=== PATIENT | male | born 1980 | race Caucasian/White ===

== ENCOUNTER 2023-08-19 14:43 | Outpatient (RCR) | payer OTHER, SELFPAY | END 2023-12-20 09:33 | disposition home or self-care (01) | LOC: HO.WCC 14:43 | PROVIDERS: PCP Internal Medicine; Visit Provider Surgery | DX: Z09 Encounter for follow-up examination after completed treatment for conditions other than malignant neoplasm (principal); E10.9 Type 1 diabetes mellitus without complications; F84.0 Autistic disorder; Z86.718 Personal history of other venous thrombosis and embolism; Z86.31 Personal history of diabetic foot ulcer | CPT/HCPCS: 11042; 99212 ==

== ENCOUNTER 2024-01-09 08:31 | Inpatient (IN) | payer OTHER, SELFPAY ==
[2024-01-09 08:39] VITALS: BP 199/102; PULSE 99; RESP 20; TEMP 37.1; O2SAT 99; BMI 35.5
--- NOTE | 2024-01-09 09:21 | ECG_ITS ---
Test Reason : HYPERTENSIVE Blood Pressure : / mmHG Vent. Rate : 091 BPM Atrial Rate : 091 BPM P-R Int : 188 ms QRS Dur : 090 ms QT Int : 352 ms P-R-T Axes : 059 -11 016 degrees QTc Int : 432 ms Normal sinus rhythm Minimal voltage criteria for LVH, may be normal variant ( R in aVL ) Cannot rule out Anterior infarct , age undetermined Abnormal ECG No previous ECGs available Referred By: Safia Paul Electronically Signed By:JOCELYNN FREED
--- NOTE | 2024-01-09 09:22 | ED.PSYCH ---
HPI - Psych General Chief Complaint: Psychiatric Symptoms Stated Complaint: SI w/ plan Time Seen by Provider: 01/09/24 09:14 Source: patient Mode of arrival: ambulatory Limitations: no limitations History of Present Illness ED Provider: CASI HUTCHINSON PA-C HPI Narrative: 43 year old male pmhx significant for T2DM on Metformin presents to the ED today on hi own accord for suicidal ideation. Patient reports feeling down/ depressed x1.5 weeks. Reports feeling suicidal with plan to shoot himself with a gun. He does not have access to any fire arms at home. He has not attempted suicide in the past. He informed [facility] shelter case manager of these recent thoughts and was driven to the ED for further evaluation. Denies HI. Denies etoh consumption. Denies illicit substance use. Denies AH/VH/TH. Unknown psych history. Denies any physical complaints at present. Denies fever, chills, headache, dizziness, chest pain, sob, palpitations. Related Data Allergies Allergy/AdvReac Type Severity Reaction Status Date / Time No Known Allergies Allergy Verified 01/09/24 08:44 Review of Systems Review of Systems: Constitutional: No fever, chills, fatigue, night sweats, weight changes ENT/Mouth: No ear pain, hearing loss, nasal congestion, sinus pain, rhinorrhea, sore throat Eyes: No eye pain, swelling, redness, vision changes, discharge Cardio: No chest pain, palpitations, MAK, orthopnea, peripheral edema Pulm: No SOB, cough, sputum, wheezing, dyspnea, hemoptysis GI: No nausea, vomiting, hematemesis, abdominal pain, diarrhea, constipation, hematochezia, melena : No irregular bleeding, dysuria, frequency, urgency, hesitancy, hematuria, flank pain, urinary flow changes, urinary incontinence or retention MSK: No back pain, neck pain, joint pain, myalgias Skin: No lesions, rashes Neuro: No weakness, numbness, paresthesias, LOC, dizziness, headache Psych: No anxiety/panic, depression, SI/HI, AH/VH All other systems reviewed and are negative. [facility] Past Medical History Attestation statement: The following information was validated with the patient. Source: old records reviewed and nursing notes reviewed Social History Social History Smoked in Last 30 Days: No Advance Directives: No Advance Directives Information Provided: Yes Do you have a plan to hurt others: No Plan Physical Exam Vital Signs: Vital Signs: Last Vital Signs Temp 97.4 F 01/09/24 14:13 Pulse 94 01/09/24 14:13 Resp 14 01/09/24 14:13 BP 177/99 H 01/09/24 14:13 Pulse Ox 98 01/09/24 14:13 O2 Del Method Room Air 01/09/24 14:13 BMI result Body Mass Index 35.5 Patient hypertensive, vitals otherwise WNL General: Well appearing, in no acute distress. Skin: Warm, dry, intact. No rashes or lesions. Head: Normocephalic, atraumatic. EENT: Hearing is intact b/l. Conjunctiva clear. Sclera is anicteric. PERRLA. EOM intact. Moist mucous membranes.? Neck: Supple without LAD. FROM. Trachea midline.? Cardiac: Chest wall symmetric. RRR. No MRG. No JVD. Lungs: Normal respiratory effort without accessory muscle use. CTA bilaterally. No rales, rhonchi, or wheezes.? Abdomen: Soft, non-tender, non-distended. No rebound tenderness or guarding. Positive BS x4. Back: No midline spinous or paraspinal tenderness. No step off deformity. Ext: Upper and lower extremities atraumatic, without tenderness, deformity, swelling or erythema. Full ROM throughout. Pulses 2+ equal and bilateral. Neuro: AOx3. Normal speech. CN 2-12 grossly intact. Strength 5/5 intact throughout. Sensation intact to light touch. NV intact distally. Ambulating with steady gait. Psych: Responds appropriately to questions. Course Course Course Narrative: 1127 -- CBC without leukocytosis. No left shift. Normocytic anemia. No priors to compare to. H&H above transfusion threshold. Chemistry without acute electrolyte abnormality requiring intervention. Urine positive for infection > patient denies any urinary symptoms however given positive nitrites with 4+ urine bacteria, will treat for UTI. Patient agreeable with this. Ceftin ordered. Urine tox negative. Ethanol undetectable. > patient medically cleared at this time > patient placed in phys obs pending care team consultation and disposition. 1315 -- Discussed case with Mariely from care team. Patient is a bed search for inpatient psych treatment with reassessment in the morning. Physician observation continued pending placement. Medications Administered Generic Name Dose Route Start Last Admin Trade Name Alq PRN Reason Stop Dose Admin Cefuroxime Axetil 500 mg 01/09/24 11:00 01/09/24 12:51 Cefuroxime Axetil 500 Mg Tablet PO 500 mg BID GUILLERMO Administration Medical Decision Making Medical Decision Making [facility] Narrative: 43 year old male pmhx significant for T2DM on Metformin presents to the ED today on hi own accord for suicidal ideation. Patient hypertensive, vitals otherwise WNL. He is nontoxic appearing in no acute distress. A&O x3. Speaking in full complete sentences. Answering questions appropriately. Exam is nonfocal. RRR. Lungs CTA bilaterally. Skin w/d/i. Differential diagnosis includes anemia, electrolyte abnormality, urinary tract infection, depression, suicidal ideation, polysubstance use, ETOH consumption Plan for basic labs, UA, urine drug screen, EKG, re-evaluation and medical clearance for care team consultation Differential Diagnosis Differential Diagnoses: The differential diagnosis associated with the presentation includes as above. Admission/Observation Not indicated. Lab Data [facility] Lab Attestation statement: I reviewed the patient's lab results. as above. 01/09/24 10:09 01/09/24 10:09 Labs: Lab Results 01/09/24 Range/Units 10:09 WBC 5.7 (4.8-10.8) X10*3/uL RBC 4.32 L (4.60-5.80) X10*6/uL Hgb 12.6 L (14.0-18.0) g/dl Hct 35.6 L (42.0-52.0) % MCV 82.4 (80.0-98.0) fL MCH 29.2 (27.0-33.0) pg MCHC 35.4 (31.0-36.0) g/dl RDW 13.6 (11.0-16.0) % Plt Count 134 L (160-400) X10*3/uL MPV 10.2 (9.4-12.4) fL Immature Gran % (Auto) 0.7 H (0.0-0.4) % Neut % (Auto) 70.9 (45-73) % Lymph % (Auto) 15.0 L (20-40) % [place] % (Auto) 9.4 (2-11) % Eos % (Auto) 3.5 (0-4) % Baso % (Auto) 0.5 (0-2) % Lymph # (Auto) 0.9 L (1.2-4.9) X10*3/uL [place] # (Auto) 0.5 (0.1-1.2) X10*3/uL Eos # (Auto) 0.2 (0.0-0.4) X10*3/uL Baso # (Auto) 0.0 (0.0-0.2) X10*3/uL Abs Immat Gran (auto) 0.04 H (0.00-0.03) X10*3/uL Absolute Neuts (auto) 4.1 (2.0-8.3) x10*3/uL Absolute Nucleated RBC 0.000 (0.0-0.012) X10*3/uL Nucleated RBC % (auto) 0.0 (0.0-0.2) /100WBC Sodium 138 (135-145) mmol/L Potassium 4.7 (3.3-5.1) mmol/L Chloride 106 (96-108) mmol/L Carbon Dioxide 25 (22-29) mmol/L Anion Gap 12 (12-20) BUN 21 H (9-16) mg/dL Creatinine 1.15 (0.5-1.4) mg/dL Estim Creat Clear Calc 98.7 Estimated GFR > 60 Random Glucose 297 H (60-115) mg/dL Calcium 9.6 (8.4-10.2) mg/dL Total Bilirubin 0.5 (0.0-1.0) mg/dL AST 15 (5-37) U/L ALT 18 (0-40) U/L Alkaline Phosphatase 82 (39-117) U/L Total Protein 7.3 (6.5-8.0) g/dL Albumin 4.0 (3.5-5.0) g/dL Urine Color Yellow Urine Appearance Cloudy Urine pH 5.5 (5.0-9.0) Ur Specific [place] 1.020 (1.005-1.025) Urine Protein 300 (3+) H (Neg-Trace) mg/dL Urine Glucose (UA) >=1000 H (Negative) mg/dL Urine Ketones Negative (Negative) mg/dL Urine Blood Large (3+) H (Negative) Urine Nitrite Positive H (Negative) Ur Leukocyte Esterase Small (1+) H (Negative) Urine RBC 11-20 H (0-2) /HPF Urine WBC >50 H (0-5) /HPF Ur Squamous Epith Cells 0-2 (0-2) /HPF Urine Bacteria 4+ (None Seen) Hyaline Casts 0-2 (0-2) /LPF Salicylates < 5.0 L (15-30) mg/dL Urine Opiates Screen Not Detected (Not Detect) Ur Buprenorphine Scrn Not Detected (Not Detect) ng/mL Ur Oxycodone Screen Not Detected (Not Detect) ng/mL Urine Methadone Screen Not Detected (Not Detect) ng/mL Urine Fentanyl Screen Not Detected (Not Detect) Acetaminophen < 3 (<30) mcg/mL Ur Barbiturates Screen Not Detected (Not Detect) Ur Phencyclidine Scrn Not Detected (Not Detect) Ur Amphetamines Screen Not Detected (Not Detect) U Benzodiazepines Scrn Not Detected (Not Detect) Urine Cocaine Screen Not Detected (Not Detect) U Marijuana (THC) Screen Not Detected (Not Detect) Ethyl Alcohol < 10 mg/dL Independent Interpretation I performed an independent interpretation of an: EKG Interpretation: EKG showing normal sinus rhythm with a rate of 91 beats per minute, QT 352, QTC 432, no acute ischemic changes or ST elevations. Social Determinants Patient?s care significantly limited by Social Determinants of Health including: Other Social Determinant of Health Critical Care Time Critical Care Time Critical Care Time: No Discharge Plan Discharge Clinical Impression: Suicidal ideation, Depression, Urinary tract infection Patient Disposition: Still a Patient Interventions: [place]-Suicide Risk Severity Scale Last Done: 01/09/24 08:45 Print Language: Maltese
[2024-01-09 10:15] LABS: MANUAL DIFF FLAG NO
[2024-01-09 10:17] LABS: Basophils Percent Auto 0.5 % (0-2); Eosinophils Absolute Auto 0.2 X10*3/uL (0.0-0.4); Eosinophils Percent Auto 3.5 % (0-4); Hematocrit 35.6 % (42.0-52.0); Hemoglobin 12.6 g/dl (14.0-18.0); Imm Gran Abs Auto 0.04 X10*3/uL (0.00-0.03); Imm Gran Pct Auto 0.7 % (0.0-0.4); Lymphocytes Absolute Auto 0.9 X10*3/uL (1.2-4.9); Mean Corpuscular HGB Conc 35.4 g/dl (31.0-36.0); Mean Corpuscular Hemoglobin 29.2 pg (27.0-33.0); Mean Corpuscular Volume 82.4 fL (80.0-98.0); Mean Platelet Volume 10.2 fL (9.4-12.4); Monocytes Absolute Auto 0.5 X10*3/uL (0.1-1.2); Monocytes Percent Auto 9.4 % (2-11); Neutrophils Absolute Auto 4.1 x10*3/uL (2.0-8.3); Neutrophils Percent Auto 70.9 % (45-73); Platelet Count 134 X10*3/uL (160-400); Red Blood Count 4.32 X10*6/uL (4.60-5.80); Red Cell Distribution Width 13.6 % (11.0-16.0); White Blood Count 5.7 X10*3/uL (4.8-10.8)
[2024-01-09 10:19] LABS: Appearance Urine Cloudy; Color Urine Yellow; Glucose Urine UA >=1000 mg/dL (Negative); Leukocyte Esterase Urine Small (1+) (Negative); Nitrite Urine Positive (Negative); PH 5.5 (5.0-9.0); UMIC TRIGGER UACC YES; Urine Blood Large (3+) (Negative); Urine Ketones Negative (Negative); Urine Protein 300 (3+) mg/dL (Neg-Trace)
[2024-01-09 10:22] LABS: Bacteria Urine 4+ (None Seen); Hyaline Casts Urine 0-2 /LPF (0-2); Squamous Epithelial Cell Urine 0-2 /HPF (0-2); UACC Culture Trigger YES; WBC Urine >50 /HPF (0-5)
[2024-01-09 10:56] LABS: Amphetamine Screen Urine Not Detected (Not Detect); Barbiturates, Urine Not Detected (Not Detect); Benzodiazepines Screen Urine Not Detected (Not Detect); Buprenorphine Scr Not Detected (Not Detect); Cannabinoid Screen Urine Not Detected (Not Detect); Cocaine Screen Urine Not Detected (Not Detect); Fentanyl, urine Not Detected (Not Detect); Methadone Screen, Urine Not Detected (Not Detect); Opiate Screen Urine Not Detected (Not Detect); Oxycodone Screen Urine Not Detected (Not Detect); Phencyclidine Screen Urine Not Detected (Not Detect)
[2024-01-09 10:59] LABS: Acetaminophen LAB < 3 mcg/mL (<30); Alanine Aminotransferase 18 U/L (0-40); Alkaline Phosphatase 82 U/L (39-117); Anion Gap 12 (12-20); Aspartate Amino Transferase 15 U/L (5-37); Bilirubin Total 0.5 mg/dL (0.0-1.0); Blood Urea Nitrogen 21 mg/dL (9-16); Calcium 9.6 mg/dL (8.4-10.2); Carbon Dioxide 25 mmol/L (22-29); Chloride 106 mmol/L (96-108); Creatinine Clr Calc Pharmacy 98.7; Estimated Glomerular Filt Rate > 60; Ethanol < 10 mg/dL; Glucose Random 297 mg/dL (60-115); Potassium 4.7 mmol/L (3.3-5.1); Salicylate < 5.0 mg/dL (15-30); Sodium 138 mmol/L (135-145); Total Protein 7.3 g/dL (6.5-8.0)
[2024-01-09] MEDS: cefuroxime axetiL 500 MG TABLET PO ×2 (12:51→20:36)
--- NOTE | 2024-01-09 13:52 | MHC.CARE ---
Patient evaluated by the CARE Team, disposition inpatient psychiatric treatment. Provider, SAUL Simon updated
[2024-01-09 14:13] VITALS: BP 177/99; PULSE 94; RESP 14; TEMP 36.3; O2SAT 98
--- NOTE | 2024-01-09 16:12 | PC.NURSE ---
Assumed care of patient, patient is calm and cooperative, offering no complaints to this RN, respirations even and unlabored, no apparent distress noted
--- NOTE | 2024-01-09 17:56 | MHC.CARE ---
[employer] [facility] sending patient's medical record via fax
[2024-01-09 19:37] VITALS: BP 177/99
[2024-01-09] MEDS: cloNIDine HCL 0.1 MG TABLET PO (19:37)
[2024-01-09 20:38] VITALS: BP 155/85; PULSE 83; RESP 18; TEMP 36.8; O2SAT 98
[2024-01-09 22:23] VITALS: BP 169/82; PULSE 87; RESP 18; TEMP 36.7; O2SAT 97
[2024-01-10 02:12] VITALS: BMI 35.2
--- NOTE | 2024-01-10 02:14 | PC.ADMIT ---
Pt is a 43 year old male admitted to the unit after referral from the CARE Team via the [facility] ED POD. Pt arrived on unit at 2215 on 01/09/2024. Legal status is a CV. Pt medical issues are T2 DM, UTI, moderate golf ball sized, calloused area on right ball of foot as well as callousing on his left and right heels. Notably on left foot, fourth toe, plantar aspect, there appears to be a scabbed wounded area. Pt reports in August or September 2023 he was seeing someone at the Wound center at [facility] for the right ball of foot area. Pt denies substance use, or etoh use or tobacco use. Per pt's sister, Any, pt carries dx's of Autism, OCD, Developmental delays. 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 Pt lives with his 12 year old Rod dolan in the home he grew up in. Sister takes care of bills and mother set up before her so he could live there. Pt reports that he was having increasing thoughts of feeling like noone cares and noone would miss him if he . Pt stated that he walked into a gun store because he wanted to buy a gun to kill himself. Pt was told he would need a license to get the gun and a background check would also need to be done. Pt left store and had mentioned this all to a coworker at and she brought him to the [facility] ED were he was evaluated and admitted. Pt presents, disheveled in johnnies with good eye contact, intermittent rocking at times, Pt speaks in a monotone manner and is extremely polite and pleasant. Pt also stutters at times as well. Provider business administration instructor notified of admission, orders obtained. Pt placed on 15 minute safety checks. He reports feeling safe on the unit.
[2024-01-10 07:44] VITALS: BP 179/85; PULSE 88; RESP 14; TEMP 36.8; O2SAT 93
[2024-01-10 08:15] LABS: Estimated Average Glucose 171 mg/dL; Hemoglobin A1c % 7.6 % (<6.0)
[2024-01-10 08:32] LABS: Cholesterol 230 mg/dL (<200); HDL Cholesterol 37 mg/dL (>40); Triglycerides 442 mg/dL (<150)
[2024-01-10 08:34] VITALS: BP 179/85; PULSE 82; RESP 14; TEMP 36.8; O2SAT 93
[2024-01-10] MEDS: cloNIDine HCL 0.1 MG TABLET PO (08:36)
[2024-01-10] MEDS: Sertraline HCL 100 MG TABLET PO (08:37)
[2024-01-10] MEDS: risperiDONE 1 MG TABLET PO ×2 (08:37→21:34)
[2024-01-10] MEDS: cefuroxime axetiL 500 MG TABLET PO ×2 (08:37→21:48)
[2024-01-10 08:41] LABS: TSH reflex Free T4 1.62 uIU/mL (0.32-4.0)
[2024-01-10] MEDS: Flu Vacc TS2024-25(6mos up)/PF 0.5 ML SYRINGE IM (08:42)
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
[2024-01-10 09:18] LABS: Glucose, Whole Blood 313 mg/dL (60-115)
[2024-01-10 10:15] VITALS: BP 140/78
--- NOTE | 2024-01-10 11:44 | P.EN_ITS ---
Event Note Date of Service: 01/10/24 Event Note: Patient is a 43-year-old male with a PMH significant for HLD, non -insulin-dependent type 2 diabetes, and depression who was admitted to [facility] psychiatry unit for increased depression with suicidal ideation with plan to shoot herself with a gun. Hospitalist consult for diabetic management. Patient reports that he has previously been on metformin diabetes management, but is unaware of what his dose was or when he last took his medication. Patient believes it was a few days or weeks ago rather than months. However, can find no recent claim history for filling prescription. Patient denies history of insulin use. Last POC 313. Will start patient on metformin [address] and place on sliding scale insulin. Continue counseling patient adhering to a diabetic diet and diabetic snacking while on the unit. Time Spent With Patient Time: Total time managing care of this patient today ____ minutes.
[2024-01-10] MEDS: metFORMIN HCl 500 MG TABLET PO ×2 (13:00→18:04)
--- NOTE | 2024-01-10 15:29 | HO.WOUND ---
Wound Consult: Initial 43yr old? male admitted to [facility] on 01/09/24 18:46 - to the behavioral health unit. See progress notes and H&P for detailed history.? Wound consult placed for Plantar foot wounds.? Patient agreeable to assessment and photo documentation.? Patient reports he has treated in the outpt wound clinic in the past - he reports he has not been there for sometime. Recommend patient rerturn to wound clinic or Podiatry for callus trimming and care - he reports understanding. Left 4th toe - noted for hard firm brown callus - edges lifting but central area firmly attached to toe - no wound noted - no drainage noted - no topical recommendations needed at this time as this appears to be a chronic callus - if provider or direct care team have concern may consult surgery however it does not appear to be infected or shows s/s of infection at this time. Right Plantar Callus and Callused Heel - Heel is dry thickened tissue no fissures noted at this time - no topical interventions needed at this time. The plantar callus shows signs of previous bleeding given callus pigmentation color but could also be dirt and debris. The plantar callus is soft and moist in the center no fluctuance noted - no drainage observed no s/s of infection at this time. Would recommend Betadine daily with dry covering dressing to dry out callus and follow up outpt. However should staff or direct care provider have concern for wound development and or s/s of infection would recommend surgery consult for evaluation. Recommendations: 1. Right Plantar Callus - [place] with Betadine daily. Cover with dry dressing. Re-consult wound care Nurse for wound deterioration or wound changes.
[2024-01-10 17:53] LABS: Glucose, Whole Blood 421 mg/dL (60-115)
[2024-01-10] MEDS: Insulin Lispro 100 UNIT/ML 3 ML VIAL SUBCUT ×2 (18:03→19:24)
[2024-01-10 19:07] LABS: Glucose, Whole Blood 393 mg/dL (60-115)
[2024-01-10 19:40] VITALS: BP 171/93; PULSE 89; RESP 18; TEMP 36.6; O2SAT 99
[2024-01-10 21:22] LABS: Glucose, Whole Blood 240 mg/dL (60-115)
--- NOTE | 2024-01-10 21:31 | PC.NURSE ---
Provider held lispro 2100 dose tonight due to earlier lispro dose given late. Lantus will be given.
[2024-01-10] MEDS: Insulin Glargine,Hum.rec.anlog 100 UNIT/ML 10 ML VIAL 10 UNIT SUBCUT (21:36)
[2024-01-11 07:43] VITALS: BP 167/92; PULSE 93; RESP 16; TEMP 36.8; O2SAT 96
[2024-01-11 08:43] LABS: Glucose, Whole Blood 252 mg/dL (60-115)
[2024-01-11] MEDS: metFORMIN HCl 500 MG TABLET PO (08:55)
[2024-01-11] MEDS: cefuroxime axetiL 500 MG TABLET PO ×2 (08:55→22:43)
[2024-01-11] MEDS: risperiDONE 1 MG TABLET PO ×2 (08:55→22:43)
[2024-01-11] MEDS: Sertraline HCL 50 MG TABLET 150 MG PO (08:56)
[2024-01-11] MEDS: Insulin Lispro 100 UNIT/ML 3 ML VIAL SUBCUT ×4 (10:05→22:43)
[2024-01-11 13:01] LABS: Glucose, Whole Blood 292 mg/dL (60-115)
--- NOTE | 2024-01-11 13:24 | P.PNPSI_ITS ---
Subjective Subjective Date of Service: 01/11/24 Reason For Visit: SI Subjective Notes: Conditional Voluntary Healthcare Proxy: No Guardianship: No Medical Problems Affecting Mental Status: Yes (?diabetes) Interim History: 43 YO with ASD and depression, recent trip to gun store to buy a gun to kill himself- Reports he is not suicidal today- feeling very helped by medication and staff here- sleep ok, no side effect noticed of medication Medication Compliance: Yes Side effects from medications: No Attending Groups: Yes Review of Systems Acute medical concerns: Yes Insuling being adjusted for diabetes sugars in high 200s Medical Review of Systems: unchanged Mental Status Exam Mental Status Exam Narrative: rocking back and forth in chair, eating from snack bag Patient Appearance: Disheveled and Unkempt Patient Orientation: Person and Place Level of Consciousness: Awake and Restless Patient Behavior: Dependent, Cooperative and Passive Mood Description: Anxious Affect Description: Blunted Ability to Follow Directions: Good Speech Pattern: Clear and Impoverished Hallucinations: None Delusions: Not Present Thought Process: Intact and Slowed Thinking Thought Content: positive for [place] and positive for Poverty of Content Abnormal Motor Activity Signs and Symptoms: Restlessness Judgement: Fair Diagnostics Vital Signs (24Hr): Vital Signs - 24 hr 01/10/24 19:40 01/11/24 07:43 Temperature 97.9 F 98.2 F Pulse Rate 89 93 Respiratory Rate 18 16 Blood Pressure 171/93 H 167/92 H Pulse Oximetry 99 96 Oxygen Delivery Method Room Air Room Air BMI result Body Mass Index 35.2 Labs 01/09/24 10:09 01/09/24 10:09 Labs: Laboratory Results - last 48 hr 01/10/24 01/10/24 01/10/24 07:54 09:12 17:48 POC Glucose 313 H 421 H* Estimat Average Glucose 171 Hemoglobin A1c % 7.6 H Triglycerides 442 H Cholesterol 230 H LDL Cholesterol, Calc TNP HDL Cholesterol 37 L TSH 1.62 01/10/24 01/10/24 01/11/24 19:01 21:12 08:31 POC Glucose 393 H* 240 H 252 H Estimat Average Glucose Hemoglobin A1c % Triglycerides Cholesterol LDL Cholesterol, Calc HDL Cholesterol TSH 01/11/24 12:57 POC Glucose 292 H Estimat Average Glucose Hemoglobin A1c % Triglycerides Cholesterol LDL Cholesterol, Calc HDL Cholesterol TSH Medications Medications Current Medications Acetaminophen (Acetaminophen 325 Mg Tablet) 650 mg PO Q6H PRN PRN Reason: Headache/Pain Mild Scale (1-3) Al Hydroxide/Mg Hydroxide (Magnesium Hydrox/Alum Hydrox 30 Ml Oral.Susp) 30 ml PO Q6H PRN PRN Reason: Heartburn/Nausea Cefuroxime Axetil (Cefuroxime Axetil 500 Mg Tablet) 500 mg PO BID [facility] Last Admin: 01/11/24 08:55 Dose: 500 mg Clonidine HCl (Clonidine Hcl 0.1 Mg Tablet) 0.1 mg PO BID PRN; Protocol PRN Reason: for SBP>160 or DBP>100 Last Admin: 01/10/24 08:36 Dose: 0.1 mg Glucose (Glucose Gel 15 Gm Gel..Gram.) 15 gm PO Q15M PRN; Protocol PRN Reason: per Hypoglycemia Standing Ord. Hydroxyzine HCl (Hydroxyzine Hcl 25 Mg Tablet) 25 mg PO Q6H PRN PRN Reason: Anxiety Dextrose (D10) 250 mls @ 750 mls/hr IV Q15M PRN; Protocol PRN Reason: per Hypoglycemia Standing Ord. Insulin Glargine (Insulin Glargine,Hum.Rec.Anlog 100 Unit/Ml 10 Ml Vial) 10 unit SUBCUT BEDTIME [facility] Last Admin: 01/10/24 21:36 Dose: 10 unit Insulin Human Lispro (Insulin Lispro 100 Unit/Ml 3 Ml Vial) 0 unit SUBCUT QIDACHS [facility]; Protocol Last Admin: 01/11/24 10:05 Dose: 6 unit Magnesium Hydroxide (Milk Of Magnesia 30 Ml Oral.Susp) 30 ml PO DAILY PRN PRN Reason: Constipation Metformin HCl (Metformin Hcl 1,000 Mg Tablet) 1,000 mg PO BIDWM [facility] Nicotine (Nicotine 21 Mg Patch.Td24) 21 mg TRANSDERMA DAILY PRN PRN Reason: smoking cessation Nicotine Polacrilex (Nicotine Polacrilex 2 Mg Gum) 4 mg BUCCAL Q2H PRN PRN Reason: Nicotine Cravings Olanzapine (Olanzapine 5 Mg Tablet) 5 mg PO TID PRN PRN Reason: agitation Risperidone (Risperidone 1 Mg Tablet) 1 mg PO BID [facility] Last Admin: 01/11/24 08:55 Dose: 1 mg Sertraline HCl (Sertraline Hcl 50 Mg Tablet) 150 mg PO DAILY [facility] Last Admin: 01/11/24 08:56 Dose: 150 mg Trazodone HCl (Trazodone Hcl 50 Mg Tablet) 50 mg PO BEDTIME MRX1 PRN PRN Reason: Insomnia Allergies Allergies Allergy/AdvReac Type Severity Reaction Status Date / Time No Known Allergies Allergy Verified 01/09/24 08:44 Assessment & Plan Assessment & Plan (1) Urinary tract infection: Status: Acute Code(s): N39.0 - Urinary tract infection, site not specified (2) Depression: Status: Acute Code(s): F32.A - Depression, unspecified (3) Auditory hallucinations: Status: Acute Code(s): R44.0 - Auditory hallucinations (4) Adjustment disorder with mixed anxiety and depressed mood: Status: Acute Code(s): F43.23 - Adjustment disorder with mixed anxiety and depressed mood Plan increase risperidone 1 mg daily to 1 mg BID. increase zoloft 100 mg daily to 150 mg daily. medical consult for DM mgmt. 01/10- insulin adjusted for glucose levels- encouraged patient re nutrition avoiding sugar-he seems tolerating med changes since admission yesterday- recent si with attempt to buy gun scary- Patient educated on: medication risk/benefits and medical condition Informed Consent: understands Reason for continued inpatient stay Substantial Risk for: harm to self and rapid decompensation Time Spent With Patient Time: Total time managing care of this patient today ____ minutes.
[2024-01-11 17:57] LABS: Glucose, Whole Blood 248 mg/dL (60-115)
[2024-01-11] MEDS: metFORMIN HCl 1,000 MG TABLET 1000 MG PO (17:58)
[2024-01-11 19:07] VITALS: BP 175/95; PULSE 94; RESP 16; TEMP 36.9; O2SAT 96
[2024-01-11 21:08] LABS: Glucose, Whole Blood 270 mg/dL (60-115)
[2024-01-11] MEDS: Insulin Glargine,Hum.rec.anlog 100 UNIT/ML 10 ML VIAL 10 UNIT SUBCUT (22:43)
[2024-01-12 08:00] VITALS: BP 170/97; PULSE 97; RESP 18; TEMP 36.5; O2SAT 97
[2024-01-12 08:43] LABS: Glucose, Whole Blood 285 mg/dL (60-115)
[2024-01-12] MEDS: risperiDONE 1 MG TABLET PO ×2 (09:01→21:34)
[2024-01-12] MEDS: Sertraline HCL 50 MG TABLET 150 MG PO (09:01)
[2024-01-12] MEDS: cefuroxime axetiL 500 MG TABLET PO ×2 (09:02→21:34)
[2024-01-12] MEDS: metFORMIN HCl 1,000 MG TABLET 1000 MG PO ×2 (09:02→17:20)
[2024-01-12] MEDS: Insulin Lispro 100 UNIT/ML 3 ML VIAL SUBCUT ×4 (09:17→21:33)
--- NOTE | 2024-01-12 12:40 | HO.PSYCHPN ---
Subjective Subjective Date of Service: 01/12/24 Reason For Visit: SI Subjective Notes: Conditional Voluntary Healthcare Proxy: No Guardianship: No Medical Problems Affecting Mental Status: No Interim History: 43 yo WM very gracious with staff, denying further si - nursing reports sister says patient changed keys to his car- pt denies this- suggested he clarify with sister- would be concerning if valid- He says he did not buy gun at gun store- And is feeling improved here with meds and care- Diabetes seems not fully managed so insulin added yesterday and today seems like htn not managed- will start lisinopril. Medication Compliance: Yes Side effects from medications: No Attending Groups: Yes Review of Systems Acute medical concerns: Yes htn? new dx and diabetes not controlled Medical Review of Systems: unchanged Mental Status Exam Mental Status Exam Patient Appearance: Unkempt Patient Orientation: Person, Place, Time and Situation Level of Consciousness: Awake and Alert Patient Behavior: Cooperative Mood Description: Anxious and Apprehensive Affect Description: Constricted Ability to Follow Directions: Fair Speech Pattern: Clear Hallucinations: None Delusions: Not Present Thought Process: Intact and Goal Oriented Thought Content: positive for [place] and positive for Slowed Thinking Judgement: Fair Diagnostics Vital Signs (24Hr): Vital Signs - 24 hr 01/11/24 19:07 01/12/24 08:00 Temperature 98.5 F 97.7 F Pulse Rate 94 97 Respiratory Rate 16 18 Blood Pressure 175/95 H 170/97 H Pulse Oximetry 96 97 Oxygen Delivery Method Room Air Room Air BMI result Body Mass Index 35.2 Labs 01/09/24 10:09 01/09/24 10:09 Labs: Laboratory Results - last 48 hr 01/10/24 01/10/24 01/10/24 17:48 19:01 21:12 POC Glucose 421 H* 393 H* 240 H 01/11/24 01/11/24 01/11/24 08:31 12:57 17:52 POC Glucose 252 H 292 H 248 H 01/11/24 01/12/24 21:02 08:33 POC Glucose 270 H 285 H Medications Medications Current Medications Acetaminophen (Acetaminophen 325 Mg Tablet) 650 mg PO Q6H PRN PRN Reason: Headache/Pain Mild Scale (1-3) Al Hydroxide/Mg Hydroxide (Magnesium Hydrox/Alum Hydrox 30 Ml Oral.Susp) 30 ml PO Q6H PRN PRN Reason: Heartburn/Nausea Cefuroxime Axetil (Cefuroxime Axetil 500 Mg Tablet) 500 mg PO BID [facility] Stop: 01/13/24 09:00 Last Admin: 01/12/24 09:02 Dose: 500 mg Clonidine HCl (Clonidine Hcl 0.1 Mg Tablet) 0.1 mg PO BID PRN; Protocol PRN Reason: for SBP>160 or DBP>100 Last Admin: 01/10/24 08:36 Dose: 0.1 mg Glucose (Glucose Gel 15 Gm Gel..Gram.) 15 gm PO Q15M PRN; Protocol PRN Reason: per Hypoglycemia Standing Ord. Hydroxyzine HCl (Hydroxyzine Hcl 25 Mg Tablet) 25 mg PO Q6H PRN PRN Reason: Anxiety Dextrose (D10) 250 mls @ 750 mls/hr IV Q15M PRN; Protocol PRN Reason: per Hypoglycemia Standing Ord. Insulin Glargine (Insulin Glargine,Hum.Rec.Anlog 100 Unit/Ml 10 Ml Vial) 10 unit SUBCUT BEDTIME [facility] Last Admin: 01/11/24 22:43 Dose: 10 unit Insulin Human Lispro (Insulin Lispro 100 Unit/Ml 3 Ml Vial) 0 unit SUBCUT QIDACHS [facility]; Protocol Last Admin: 01/12/24 09:17 Dose: 6 unit Magnesium Hydroxide (Milk Of Magnesia 30 Ml Oral.Susp) 30 ml PO DAILY PRN PRN Reason: Constipation Metformin HCl (Metformin Hcl 1,000 Mg Tablet) 1,000 mg PO BIDWM [facility] Last Admin: 01/12/24 09:02 Dose: 1,000 mg Nicotine (Nicotine 21 Mg Patch.Td24) 21 mg TRANSDERMA DAILY PRN PRN Reason: smoking cessation Nicotine Polacrilex (Nicotine Polacrilex 2 Mg Gum) 4 mg BUCCAL Q2H PRN PRN Reason: Nicotine Cravings Olanzapine (Olanzapine 5 Mg Tablet) 5 mg PO TID PRN PRN Reason: agitation Risperidone (Risperidone 1 Mg Tablet) 1 mg PO BID [facility] Last Admin: 01/12/24 09:01 Dose: 1 mg Sertraline HCl (Sertraline Hcl 50 Mg Tablet) 150 mg PO DAILY [facility] Last Admin: 01/12/24 09:01 Dose: 150 mg Trazodone HCl (Trazodone Hcl 50 Mg Tablet) 50 mg PO BEDTIME MRX1 PRN PRN Reason: Insomnia Allergies Allergies Allergy/AdvReac Type Severity Reaction Status Date / Time No Known Allergies Allergy Verified 01/09/24 08:44 Assessment & Plan Assessment & Plan (1) Urinary tract infection: Status: Acute Code(s): N39.0 - Urinary tract infection, site not specified (2) Depression: Status: Acute Code(s): F32.A - Depression, unspecified (3) Auditory hallucinations: Status: Acute Code(s): R44.0 - Auditory hallucinations (4) Adjustment disorder with mixed anxiety and depressed mood: Status: Acute Code(s): F43.23 - Adjustment disorder with mixed anxiety and depressed mood Plan increase risperidone 1 mg daily to 1 mg BID. increase zoloft 100 mg daily to 150 mg daily. medical consult for DM mgmt. 01/10- insulin adjusted for glucose levels- encouraged patient re nutrition avoiding sugar-he seems tolerating med changes since admission yesterday- recent si with attempt to buy gun scary- 01/11- started lisinopril- clarification with sister about pt changing justin system to truck concerning- if true- pt denies Patient educated on: medication risk/benefits and medical condition Informed Consent: understands Reason for continued inpatient stay Substantial Risk for: harm to self and rapid decompensation Time Spent With Patient Time: Total time managing care of this patient today ____ minutes.
[2024-01-12 13:03] LABS: Glucose, Whole Blood 334 mg/dL (60-115)
[2024-01-12 15:38] VITALS: BP 133/78
[2024-01-12] MEDS: lisinopriL 5 MG TABLET PO (15:38)
[2024-01-12 17:41] LABS: Glucose, Whole Blood 250 mg/dL (60-115)
[2024-01-12 20:00] VITALS: BP 144/80; PULSE 98; RESP 16; TEMP 36.7; O2SAT 96
[2024-01-12 20:36] LABS: Glucose, Whole Blood 198 mg/dL (60-115)
[2024-01-12] MEDS: Insulin Glargine,Hum.rec.anlog 100 UNIT/ML 10 ML VIAL 10 UNIT SUBCUT (21:32)
[2024-01-13 07:45] VITALS: BP 160/81; PULSE 95; RESP 18; TEMP 36.9; O2SAT 98
[2024-01-13 08:40] LABS: Glucose, Whole Blood 186 mg/dL (60-115)
[2024-01-13 08:50] VITALS: BP 160/81
[2024-01-13] MEDS: lisinopriL 5 MG TABLET PO (08:50)
[2024-01-13] MEDS: cefuroxime axetiL 500 MG TABLET PO (08:51)
[2024-01-13] MEDS: metFORMIN HCl 1,000 MG TABLET 1000 MG PO ×2 (08:51→18:00)
[2024-01-13] MEDS: risperiDONE 1 MG TABLET PO ×2 (08:51→20:38)
[2024-01-13] MEDS: Sertraline HCL 50 MG TABLET 150 MG PO (08:51)
[2024-01-13] MEDS: Insulin Lispro 100 UNIT/ML 3 ML VIAL SUBCUT ×4 (09:19→20:37)
[2024-01-13 12:40] LABS: Glucose, Whole Blood 330 mg/dL (60-115)
--- NOTE | 2024-01-13 14:06 | HO.PSYCHPN ---
Subjective Subjective Date of Service: 01/13/24 Reason For Visit: SI Interim History: no change from admission. polite, pleasant, stilted conversation. denies any concerns from the w/e, denies any s/e from medications. reports he is doing OK with voices at the moment, actually saying he feels the AH are much less now. per staff, blunted. taking meds. visible. pleasant, calm. slept for 8 hours. Mental Status Exam Mental Status Exam Narrative: disheveled, in hospital scrubs. cooperative. rocking. speech nml rate, amount, loudness. somewhat stilted tone. stutter. thoughts linear and logical. affect constricted, normo-intense, non-labile. mood good. no SI/HI/VH reported. mild AH. Diagnostics Vital Signs (24Hr): Vital Signs - 24 hr 01/12/24 15:38 01/12/24 20:00 01/13/24 07:45 Temperature 98.1 F 98.5 F Pulse Rate 98 95 Respiratory Rate 16 18 Blood Pressure 133/78 144/80 H 160/81 H Pulse Oximetry 96 98 Oxygen Delivery Method Room Air Room Air 01/13/24 08:50 Temperature Pulse Rate Respiratory Rate Blood Pressure 160/81 H Pulse Oximetry Oxygen Delivery Method BMI result Body Mass Index 35.2 Labs 01/09/24 10:09 01/09/24 10:09 Labs: Laboratory Results - last 48 hr 01/11/24 01/11/24 01/12/24 17:52 21:02 08:33 POC Glucose 248 H 270 H 285 H 01/12/24 01/12/24 01/12/24 12:52 17:35 20:31 POC Glucose 334 H 250 H 198 H 01/13/24 01/13/24 08:28 12:31 POC Glucose 186 H 330 H Medications Medications Current Medications Acetaminophen (Acetaminophen 325 Mg Tablet) 650 mg PO Q6H PRN PRN Reason: Headache/Pain Mild Scale (1-3) Al Hydroxide/Mg Hydroxide (Magnesium Hydrox/Alum Hydrox 30 Ml Oral.Susp) 30 ml PO Q6H PRN PRN Reason: Heartburn/Nausea Clonidine HCl (Clonidine Hcl 0.1 Mg Tablet) 0.1 mg PO BID PRN; Protocol PRN Reason: for SBP>160 or DBP>100 Last Admin: 01/10/24 08:36 Dose: 0.1 mg Glucose (Glucose Gel 15 Gm Gel..Gram.) 15 gm PO Q15M PRN; Protocol PRN Reason: per Hypoglycemia Standing Ord. Hydroxyzine HCl (Hydroxyzine Hcl 25 Mg Tablet) 25 mg PO Q6H PRN PRN Reason: Anxiety Dextrose (D10) 250 mls @ 750 mls/hr IV Q15M PRN; Protocol PRN Reason: per Hypoglycemia Standing Ord. Insulin Glargine (Insulin Glargine,Hum.Rec.Anlog 100 Unit/Ml 10 Ml Vial) 10 unit SUBCUT BEDTIME [facility] Last Admin: 01/12/24 21:32 Dose: 10 unit Insulin Human Lispro (Insulin Lispro 100 Unit/Ml 3 Ml Vial) 0 unit SUBCUT QIDACHS [facility]; Protocol Last Admin: 01/13/24 12:52 Dose: 8 unit Lisinopril (Lisinopril 5 Mg Tablet) 5 mg PO DAILY [facility]; Protocol Last Admin: 01/13/24 08:50 Dose: 5 mg Magnesium Hydroxide (Milk Of Magnesia 30 Ml Oral.Susp) 30 ml PO DAILY PRN PRN Reason: Constipation Metformin HCl (Metformin Hcl 1,000 Mg Tablet) 1,000 mg PO BIDWM [facility] Last Admin: 01/13/24 08:51 Dose: 1,000 mg Nicotine (Nicotine 21 Mg Patch.Td24) 21 mg TRANSDERMA DAILY PRN PRN Reason: smoking cessation Nicotine Polacrilex (Nicotine Polacrilex 2 Mg Gum) 4 mg BUCCAL Q2H PRN PRN Reason: Nicotine Cravings Olanzapine (Olanzapine 5 Mg Tablet) 5 mg PO TID PRN PRN Reason: agitation Risperidone (Risperidone 1 Mg Tablet) 1 mg PO BID [facility] Last Admin: 01/13/24 08:51 Dose: 1 mg Sertraline HCl (Sertraline Hcl 50 Mg Tablet) 150 mg PO DAILY [facility] Last Admin: 01/13/24 08:51 Dose: 150 mg Trazodone HCl (Trazodone Hcl 50 Mg Tablet) 50 mg PO BEDTIME MRX1 PRN PRN Reason: Insomnia Allergies Allergies Allergy/AdvReac Type Severity Reaction Status Date / Time No Known Allergies Allergy Verified 01/09/24 08:44 Assessment & Plan Assessment & Plan (1) Urinary tract infection: Status: Acute Code(s): N39.0 - Urinary tract infection, site not specified (2) Depression: Status: Acute Code(s): F32.A - Depression, unspecified (3) Auditory hallucinations: Status: Acute Code(s): R44.0 - Auditory hallucinations (4) Adjustment disorder with mixed anxiety and depressed mood: Status: Acute Code(s): F43.23 - Adjustment disorder with mixed anxiety and depressed mood Plan increase risperidone 1 mg daily to 1 mg BID. increase zoloft 100 mg daily to 150 mg daily. medical consult for DM mgmt. 01/10- insulin adjusted for glucose levels- encouraged patient re nutrition avoiding sugar-he seems tolerating med changes since admission yesterday- recent si with attempt to buy [employer]- 01/11- started lisinopril- clarification with sister about pt changing justin system to truck concerning- if true- pt denies 01/12: AH improved. continue current mgmt. Reason for continued inpatient stay Substantial Risk for: inability to function and rapid decompensation Time Spent With Patient Time: Total time managing care of this patient today __25__ minutes.
[2024-01-13 18:00] LABS: Glucose, Whole Blood 288 mg/dL (60-115)
[2024-01-13 20:00] VITALS: BP 130/80; PULSE 94; RESP 18; TEMP 37; O2SAT 97
[2024-01-13 20:16] LABS: Glucose, Whole Blood 239 mg/dL (60-115)
[2024-01-13] MEDS: Insulin Glargine,Hum.rec.anlog 100 UNIT/ML 10 ML VIAL 10 UNIT SUBCUT (20:36)
[2024-01-13] MEDS: traZODone HCL 50 MG TABLET PO (20:50)
[2024-01-14 07:59] VITALS: BP 175/102; PULSE 103; RESP 18; TEMP 36.8; O2SAT 97
[2024-01-14 08:27] VITALS: BP 123/81; PULSE 106
[2024-01-14 08:28] VITALS: BP 123/81
[2024-01-14] MEDS: metFORMIN HCl 1,000 MG TABLET 1000 MG PO ×2 (08:28→16:58)
[2024-01-14] MEDS: lisinopriL 5 MG TABLET PO (08:28)
[2024-01-14] MEDS: Sertraline HCL 50 MG TABLET 150 MG PO (08:28)
[2024-01-14] MEDS: risperiDONE 1 MG TABLET PO ×2 (08:29→22:06)
[2024-01-14 08:54] LABS: Glucose, Whole Blood 208 mg/dL (60-115)
[2024-01-14] MEDS: Insulin Lispro 100 UNIT/ML 3 ML VIAL SUBCUT ×3 (09:06→22:11)
[2024-01-14] MEDS: Acetaminophen 325 MG TABLET 650 MG PO (09:07)
[2024-01-14 12:31] LABS: Glucose, Whole Blood 261 mg/dL (60-115)
--- NOTE | 2024-01-14 15:18 | P.PNPSI_ITS ---
Subjective Subjective Date of Service: 01/14/24 Reason For Visit: SI Interim History: feeling fine. denies AH. mood OK. per staff, taking meds. not social. denies SI/HI/AVH. D/C . Mental Status Exam Mental Status Exam Narrative: disheveled, in hospital scrubs. cooperative. rocking. speech nml rate, amount, loudness. somewhat stilted tone. stutter. thoughts linear and logical. affect constricted, normo-intense, non-labile. mood good. no SI/HI/VH reported. denies AH. Diagnostics Vital Signs (24Hr): Vital Signs - 24 hr 01/13/24 20:00 01/14/24 07:59 01/14/24 08:27 Temperature 98.6 F 98.2 F Pulse Rate 94 103 H 106 H Respiratory Rate 18 18 Blood Pressure 130/80 175/102 H 123/81 Pulse Oximetry 97 97 Oxygen Delivery Method Room Air Room Air 01/14/24 08:28 Temperature Pulse Rate Respiratory Rate Blood Pressure 123/81 Pulse Oximetry Oxygen Delivery Method BMI result Body Mass Index 35.2 Labs 01/09/24 10:09 01/09/24 10:09 Labs: Laboratory Results - last 48 hr 01/12/24 01/12/24 01/13/24 17:35 20:31 08:28 POC Glucose 250 H 198 H 186 H 01/13/24 01/13/24 01/13/24 12:31 17:49 20:11 POC Glucose 330 H 288 H 239 H 01/14/24 01/14/24 08:30 12:21 POC Glucose 208 H 261 H Medications Medications Current Medications Acetaminophen (Acetaminophen 325 Mg Tablet) 650 mg PO Q6H PRN PRN Reason: Headache/Pain Mild Scale (1-3) Last Admin: 01/14/24 09:07 Dose: 650 mg Al Hydroxide/Mg Hydroxide (Magnesium Hydrox/Alum Hydrox 30 Ml Oral.Susp) 30 ml PO Q6H PRN PRN Reason: Heartburn/Nausea Clonidine HCl (Clonidine Hcl 0.1 Mg Tablet) 0.1 mg PO BID PRN; Protocol PRN Reason: for SBP>160 or DBP>100 Last Admin: 01/10/24 08:36 Dose: 0.1 mg Glucose (Glucose Gel 15 Gm Gel..Gram.) 15 gm PO Q15M PRN; Protocol PRN Reason: per Hypoglycemia Standing Ord. Hydroxyzine HCl (Hydroxyzine Hcl 25 Mg Tablet) 25 mg PO Q6H PRN PRN Reason: Anxiety Dextrose (D10) 250 mls @ 750 mls/hr IV Q15M PRN; Protocol PRN Reason: per Hypoglycemia Standing Ord. Insulin Glargine (Insulin Glargine,Hum.Rec.Anlog 100 Unit/Ml 10 Ml Vial) 10 unit SUBCUT BEDTIME [facility] Last Admin: 01/13/24 20:36 Dose: 10 unit Insulin Human Lispro (Insulin Lispro 100 Unit/Ml 3 Ml Vial) 0 unit SUBCUT QIDACHS [facility]; Protocol Last Admin: 01/14/24 12:52 Dose: 4 unit Lisinopril (Lisinopril 5 Mg Tablet) 5 mg PO DAILY [facility]; Protocol Last Admin: 01/14/24 08:28 Dose: 5 mg Magnesium Hydroxide (Milk Of Magnesia 30 Ml Oral.Susp) 30 ml PO DAILY PRN PRN Reason: Constipation Metformin HCl (Metformin Hcl 1,000 Mg Tablet) 1,000 mg PO BIDWM [facility] Last Admin: 01/14/24 08:28 Dose: 1,000 mg Nicotine (Nicotine 21 Mg Patch.Td24) 21 mg TRANSDERMA DAILY PRN PRN Reason: smoking cessation Nicotine Polacrilex (Nicotine Polacrilex 2 Mg Gum) 4 mg BUCCAL Q2H PRN PRN Reason: Nicotine Cravings Olanzapine (Olanzapine 5 Mg Tablet) 5 mg PO TID PRN PRN Reason: agitation Risperidone (Risperidone 1 Mg Tablet) 1 mg PO BID [facility] Last Admin: 01/14/24 08:29 Dose: 1 mg Sertraline HCl (Sertraline Hcl 50 Mg Tablet) 150 mg PO DAILY [facility] Last Admin: 01/14/24 08:28 Dose: 150 mg Trazodone HCl (Trazodone Hcl 50 Mg Tablet) 50 mg PO BEDTIME MRX1 PRN PRN Reason: Insomnia Last Admin: 01/13/24 20:50 Dose: 50 mg Allergies Allergies Allergy/AdvReac Type Severity Reaction Status Date / Time No Known Allergies Allergy Verified 01/09/24 08:44 Assessment & Plan Assessment & Plan (1) Urinary tract infection: Status: Acute Code(s): N39.0 - Urinary tract infection, site not specified (2) Depression: Status: Acute Code(s): F32.A - Depression, unspecified (3) Auditory hallucinations: Status: Acute Code(s): R44.0 - Auditory hallucinations (4) Adjustment disorder with mixed anxiety and depressed mood: Status: Acute Code(s): F43.23 - Adjustment disorder with mixed anxiety and depressed mood Plan increase risperidone 1 mg daily to 1 mg BID. increase zoloft 100 mg daily to 150 mg daily. medical consult for DM mgmt. 01/10- insulin adjusted for glucose levels- encouraged patient re nutrition avoiding sugar-he seems tolerating med changes since admission yesterday- recent si with attempt to buy [employer] 01/11- started lisinopril- clarification with sister about pt changing justin system to truck concerning- if true- pt denies 01/12: AH improved. continue current mgmt. 01/13: denies AH. feeling in a fair mood. planning for discharge on . Reason for continued inpatient stay Substantial Risk for: harm to self, inability to function and rapid decompensation Time Spent With Patient Time: Total time managing care of this patient today __25__ minutes.
[2024-01-14 18:09] LABS: Glucose, Whole Blood 149 mg/dL (60-115)
[2024-01-14 19:46] VITALS: BP 128/74; PULSE 95; TEMP 36.7; O2SAT 97
[2024-01-14 22:01] LABS: Glucose, Whole Blood 187 mg/dL (60-115)
[2024-01-14] MEDS: traZODone HCL 50 MG TABLET PO (22:06)
[2024-01-14] MEDS: Insulin Glargine,Hum.rec.anlog 100 UNIT/ML 10 ML VIAL 10 UNIT SUBCUT (22:10)
[2024-01-15 07:20] VITALS: BP 167/86; PULSE 107; RESP 16; TEMP 37; O2SAT 97
[2024-01-15 08:00] VITALS: BP 167/86; PULSE 107; RESP 16; TEMP 37; O2SAT 97
[2024-01-15 08:41] LABS: Glucose, Whole Blood 177 mg/dL (60-115)
[2024-01-15 09:09] VITALS: BP 167/86
[2024-01-15] MEDS: Insulin Lispro 100 UNIT/ML 3 ML VIAL SUBCUT ×3 (09:09→17:51)
[2024-01-15] MEDS: metFORMIN HCl 1,000 MG TABLET 1000 MG PO ×2 (09:09→16:25)
[2024-01-15] MEDS: Sertraline HCL 50 MG TABLET 150 MG PO (09:09)
[2024-01-15] MEDS: lisinopriL 5 MG TABLET PO (09:09)
[2024-01-15] MEDS: risperiDONE 1 MG TABLET PO ×2 (09:09→22:26)
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
[2024-01-15 12:44] LABS: Glucose, Whole Blood 235 mg/dL (60-115)
[2024-01-15 17:46] LABS: Glucose, Whole Blood 166 mg/dL (60-115)
[2024-01-15 20:04] VITALS: BP 129/68; PULSE 88; RESP 16; TEMP 36.7; O2SAT 97
[2024-01-15 21:57] LABS: Glucose, Whole Blood 155 mg/dL (60-115)
[2024-01-15] MEDS: traZODone HCL 50 MG TABLET PO (22:26)
[2024-01-15] MEDS: Insulin Glargine,Hum.rec.anlog 100 UNIT/ML 10 ML VIAL 10 UNIT SUBCUT (22:42)
[2024-01-16 07:44] VITALS: BP 185/105; PULSE 108; RESP 18; TEMP 36.7; O2SAT 98
[2024-01-16 07:58] LABS: Glucose, Whole Blood 156 mg/dL (60-115)
[2024-01-16] MEDS: metFORMIN HCl 1,000 MG TABLET 1000 MG PO (08:52)
[2024-01-16] MEDS: lisinopriL 5 MG TABLET PO (08:52)
[2024-01-16] MEDS: risperiDONE 1 MG TABLET PO (08:53)
[2024-01-16] MEDS: Sertraline HCL 50 MG TABLET 150 MG PO (08:53)
== END 2024-01-16 10:50 | disposition home or self-care (01) | DRG 755 ==
LOC: HO.ED 15:15 → HO.PADLT16 20:55
PROVIDERS: Physician Assistant Medical; Admitting Provider Psychiatry & Neurology Psychiatry; Emergency Provider Emergency Medicine; PCP Internal Medicine; Visit Provider Psychiatry & Neurology Psychiatry
DX: F43.23 Adjustment disorder with mixed anxiety and depressed mood (principal); R45.851 Suicidal ideations; N39.0 Urinary tract infection, site not specified; R44.0 Auditory hallucinations; B96.20 Unspecified Escherichia coli [E. coli] as the cause of diseases classified elsewhere; E11.65 Type 2 diabetes mellitus with hyperglycemia; Z23 Encounter for immunization; Z79.84 Long term (current) use of oral hypoglycemic drugs; Z79.899 Other long term (current) drug therapy
CPT/HCPCS: 36415; 80053; 80061; 80143; 80179; 80307; 81001; 82947; 83036; 84443; 85025; 87086; 87088; 87186; 90656; 93005; 99285; S9485

== ENCOUNTER → 2024-01-09 18:46 | Outpatient (BNV) | payer OTHER, SELFPAY | PROVIDERS: Admitting Provider Psychiatry & Neurology Psychiatry; Emergency Provider Emergency Medicine; PCP Internal Medicine; Visit Provider Psychiatry & Neurology Psychiatry | DX: F32.3 Major depressive disorder, single episode, severe with psychotic features (principal); F43.23 Adjustment disorder with mixed anxiety and depressed mood; N39.0 Urinary tract infection, site not specified | CPT/HCPCS: 99231; 99232; 99233 ==

== ENCOUNTER 2024-03-30 14:34 | Outpatient (RCR) | payer OTHER, SELFPAY | END 2024-05-21 15:29 | disposition home or self-care (01) | LOC: HO.WCC 14:34 | PROVIDERS: PCP Internal Medicine; Visit Provider Surgery | DX: Z09 Encounter for follow-up examination after completed treatment for conditions other than malignant neoplasm (principal); L84 Corns and callosities; F84.0 Autistic disorder; Z79.84 Long term (current) use of oral hypoglycemic drugs; Z86.31 Personal history of diabetic foot ulcer; Z79.899 Other long term (current) drug therapy | CPT/HCPCS: 11042; 99212 ==

== ENCOUNTER 2024-12-03 15:25 | Outpatient (REF) | payer OTHER, SELFPAY | END 2024-12-03 15:26 | disposition home or self-care (01) | LOC: HO.LNP 15:25 | PROVIDERS: Visit Provider Surgery Vascular Surgery | DX: Z13.89 Encounter for screening for other disorder (principal) | CPT/HCPCS: 87070; 87073; 87205 ==